=== PATIENT | male | born 1985 ===

== ENCOUNTER → 2024-11-28 | Outpatient (CLI) | payer BC | END | disposition home or self-care (01) | LOC: LAB 17:00 → LAB SHORT 17:00 | DX: L08.9 Local infection of the skin and subcutaneous tissue, unspecified (principal); D48.5 Neoplasm of uncertain behavior of skin | CPT/HCPCS: 87070; 87075; 87077; 87102; 87116; 87147; 87186; 87205 ==

== ENCOUNTER → 2025-02-01 | Outpatient (CLI) | payer BC | LOC: LAB 10:44 → LAB SHORT 10:44 | DX: L08.9 Local infection of the skin and subcutaneous tissue, unspecified (principal) | CPT/HCPCS: 87070; 87205 ==